=== PATIENT | male | born 1965 | race Caucasian/White ===

== ENCOUNTER 2016-06-06 11:16 | Outpatient (CLI) | payer OTHER ==
--- NOTE | 2016-06-06 14:44 | XRay Report ---
LUMBOSACRAL SPINE, 5 VIEWS: HISTORY: Back pain after fall. FINDINGS: Mild osteopenia and mild multilevel lumbar spondylosis are identified. There is no evidence for compression fracture, subluxation or bone lesion. The sacrum and SI joints are within normal limits. IMPRESSION: No acute injury is appreciated on x-ray. Mild spondylosis.
--- NOTE | 2016-06-06 14:44 | XRay Report ---
THORACIC SPINE, 3 VIEWS: HISTORY: Back pain after fall. FINDINGS: Bone mineralization is borderline. There is no evidence for compression deformity or posterior rib fracture. Mild multilevel thoracic spondylosis is noted. The paraspinal soft tissues are unremarkable. IMPRESSION: No evidence for acute injury to the thoracic spine on x-ray.
== END 2016-06-06 11:17 | disposition home or self-care (01) ==
LOC: XRAY 11:16
PROVIDERS: ATTEND Family Medicine
DX: M47.896 Other spondylosis, lumbar region (principal); M85.88 Other specified disorders of bone density and structure, other site; W19.XXXA Unspecified fall, initial encounter; Y93.89 Activity, other specified; Y92.89 Other specified places as the place of occurrence of the external cause; Y99.8 Other external cause status
CPT/HCPCS: 72072; 72110